=== PATIENT | female | born 1945 | race Caucasian/White ===

== ENCOUNTER 2024-10-12 10:43 | Inpatient (IN) ==
--- NOTE | 2024-10-12 11:14 | Emergency Department Note ---
Impression & Plan Chest pain ED Provider Note HISTORY OF PRESENT ILLNESS: Patient is a 79-year-old female presenting with left arm pain and chest heaviness. Patient reports that she had been having some shortness of breath now for a very long time. She is being worked up by her outpatient provider and had an EKG recently that was read as "abnormal." She is scheduled to have an outpatient stress test and further testing done later in the month. However, she woke up today and was watching TV when she started to have pain in her left upper arm. Describes it as a burning sensation that has not gone away. She also reports that she is having substernal chest pressure. She reports feeling short of breath with exertion. She is normally very physically active and has been having to take breaks after short walks and having to break multiple times during her [employer] class secondary to shortness of breath. She denies any cough or fevers. Denies any history of cardiac stents. Denies any DVT or PE history. She is not on any anticoagulation or antiplatelet therapy. Of note, patient reports that she lost her a year ago and really has been having progressively worsening shortness of breath since then. ROS: as above PHYSICAL EXAM: Constitutional: Patient appears in no acute distress. HENT: Head: Normocephalic and atraumatic. Eyes: EOMI, PERRL Mouth/Throat: Mucous membranes moist. Neck: Trachea midline. Neck supple. Cardiovascular: RRR, No murmurs, rubs or gallops. Intact distal pulses. Pulmonary/Chest: No respiratory distress. Breath sounds clear and equal bilaterally. No wheezes or rales. Abdominal: Abdomen soft, no tenderness, rebound or guarding. Musculoskeletal: No edema, tenderness or deformity noted. Skin: Warm and dry. No rash, erythema, pallor or cyanosis Psychiatric: Appropriate mood and affect for situation. Neurological: Alert and keenly responsive. CN II-XII grossly intact, moving all extremities equally and fully. MDM: - Vitals signs showed hypertension. - History obtained via patient. History as above. - Chronic conditions affecting care: HTN - Differential diagnoses include, but are not limited to: Acute coronary syndrome; pulmonary embolism; dissection; tension pneumothorax; esophageal rupture; pneumonia - Order placed for continuous cardiac monitoring. At this time, monitor showed rate of 70 bpm with normal sinus rhythm, per my interpretation. - External medical records reviewed. - EKG interpreted by myself showed normal sinus rhythm. Rate 67 bpm. QT 408. No acute ischemic changes. However, noted to have some T wave inversions in leads II, III and aVF. No previous EKG to compare to. - Laboratory workup interpreted by myself showed normal WBC; normal PT/INR; stable electyrolytes; normal troponin; normal lipase - CXR negative for pneumonia, per my interpretation - Viral respiratory panel negative - Patient offered pain meds for her symptoms in the ER, but she declined - Repeat troponin within normal limits - HEART score 4 (History +0; EKG +1; Age +2; Risk factors +1; Initial troponin +0), amounting to a moderate score. - Discussed results with patient and her family member at bedside. Patient is very anxious appearing and states she does not feel comfortable going home and waiting for her stress test later this month. Will discuss case with hospitalist service. - Discussion was had with case preparer and liner about patient's case and need for admission - Hospitalist consulted for admission - Patient admitted to [facility] hospitalist service for further evaluation and management. ASSESSMENT AND PLAN: Diagnosis: Chest pain Plan: Admit Past Med/Surg History Problem List (Updated 10/12/24 @ 13:51 by Roya Tyler MD) Chest pain (Acute) Social History Smoking Status: Never smoker Feels Safe at Home: Yes Results & Data (ED) Vital Signs Vital Signs - 24 hr 10/12/24 10:51 10/12/24 11:17 10/12/24 11:33 Temperature 36.4 C L Temperature Source Oral Pulse Rate 68 74 80 Pulse Rate from SpO2 Sensor 81 Respiratory Rate 20 23 Respiratory Effort / Characteristics Non-Labored Spontaneous Respiratory Depth Normal Respiratory Pattern Regular Blood Pressure 163/86 H Blood Pressure Mean 111 Pulse Oximetry 97 95 98 Oxygen Delivery Method Room Air Sepsis Recent Fever Within 48 Hours No Sepsis New/Unexplained Change in Mental Status N/A Sepsis Action Taken by Nursing No Action Required 10/12/24 11:46 10/12/24 12:15 10/12/24 12:30 Temperature Temperature Source Pulse Rate 72 65 66 Pulse Rate from SpO2 Sensor 64 67 Respiratory Rate 23 15 Respiratory Effort / Characteristics Respiratory Depth Respiratory Pattern Blood Pressure Blood Pressure Mean Pulse Oximetry 97 97 Oxygen Delivery Method Sepsis Recent Fever Within 48 Hours Sepsis New/Unexplained Change in Mental Status Sepsis Action Taken by Nursing 10/12/24 13:00 Temperature Temperature Source Pulse Rate 70 Pulse Rate from SpO2 Sensor 72 Respiratory Rate 13 Respiratory Effort / Characteristics Respiratory Depth Respiratory Pattern Blood Pressure 164/85 H Blood Pressure Mean 111 Pulse Oximetry 96 Oxygen Delivery Method Sepsis Recent Fever Within 48 Hours Sepsis New/Unexplained Change in Mental Status Sepsis Action Taken by Nursing Laboratory Data 10/12/24 11:11 10/12/24 11:11 Lab Results 10/12/24 10/12/24 10/12/24 Range/Units 11:11 11:15 12:59 WBC 10.51 (4.8-10.8) K/ul RBC 4.35 (4.20-5.40) M/uL Hgb 14.3 (12.0-16.0) g/dl Hct 41.9 (37.0-47.0) % MCV 96.3 (80.0-100.0) fL MCH 32.9 (25.0-34.0) pg MCHC 34.1 (32.0-36.0) g/dL RDW Std Deviation 43.1 (36.4-46.3) fL RDW Coeff of Tino 12.1 (11.5-14.5) % Plt Count 267 (130-400) K/uL MPV 11.1 (9.4-12.4) fL Immature Gran % (Auto) 0.3 % Neut % (Auto) 64.9 % Lymph % (Auto) 25.0 % [place] % (Auto) 8.4 % Eos % (Auto) 0.8 % Baso % (Auto) 0.6 % Neut # (Auto) 6.83 H (1.40-6.50) K/uL Lymph # (Auto) 2.63 (1.20-3.40) K/uL [place] # (Auto) 0.88 H (0.11-0.59) K/uL Eos # (Auto) 0.08 (0.00-0.50) K/uL Baso # (Auto) 0.06 (0.00-0.20) K/uL Immature Gran # (Auto) 0.03 (0.01-0.20) K/uL PT 10.4 (9.0-12.0) Seconds INR 1.0 (0.9-1.1) Sodium 140 (136-145) mmol/L Potassium 4.0 (3.5-5.1) mmol/L Chloride 107 (98-107) mmol/L Carbon Dioxide 27 (21-32) mmol/L Anion Gap 6 (3-11) BUN 20 (6-23) mg/dl Creatinine 0.67 (0.6-1.2) mg/dl Est Cr Clr Drug Dosing 64.2 ml/min eGFR 89.41 BUN/Creatinine Ratio 29.9 H (10-20) Glucose 96 (70-99(Fasting)) mg/dl Calcium 9.2 (8.6-10.3) mg/dl Magnesium 2.0 (1.7-2.4) mg/dl Total Bilirubin 0.4 (0.2-1.0) mg/dl AST 27 (13-39) U/L ALT 23 (7-52) U/L Alkaline Phosphatase 98 (34-104) U/L Troponin I High Sens 5.9 6.7 (0-14) pg/ml Total Protein 7.0 (6.0-8.3) gm/dl Albumin 4.3 (3.4-5.0) gm/dl Globulin 2.7 (2.5-4.0) gm/dl Albumin/Globulin Ratio 1.6 (0.9-2) Lipase 15 (11-82) U/L Adenovirus (PCR) Not Detected (NotDetected) B. pertussis DNA (PCR) Not Detected (NotDetected) B.parapertussis DNA PCR Not Detected (NotDetected) C. pneumoniae DNA (PCR) Not Detected (NotDetected) Coronavirus OC43 (PCR) Not Detected (NotDetected) Coronavirus HKU1 (PCR) Not Detected (NotDetected) Coronavirus 229E (PCR) Not Detected (NotDetected) SARS-CoV-2 (PCR) Not Detected (NotDetected) Coronavirus NL63 (PCR) Not Detected (NotDetected) Human Metapneumovir PCR Not Detected (NotDetected) Influenza Type A (PCR) Not Detected (NotDetected) Influenza Type B (PCR) Not Detected (NotDetected) M. pneumoniae (PCR) Not Detected (NotDetected) Parainfluenza 1 (PCR) Not Detected (NotDetected) Parainfluenza 2 (PCR) Not Detected (NotDetected) Parainfluenza 3 (PCR) Not Detected (NotDetected) Parainfluenza 4 (PCR) Not Detected (NotDetected) RSV (PCR) Not Detected (NotDetected) Entero/Rhino (PCR) Not Detected (NotDetected) Imaging Data Radiologist's Impression: Chest X-Ray 10/12/24 11:00 XR chest 1V portable CLINICAL HISTORY: Chest pain, nonspecific TECHNIQUE: Single frontal radiograph of the chest was obtained. Comparison: None available at the time of this dictation. FINDINGS: No lines and tubes are seen. Calcified aortic knob is seen. The lungs are clear. No evidence of pleural effusion or pneumothorax. IMPRESSION: No acute chest disease. ACT 112: Negative or not required by law. Electronically signed by: Kevin Pineda M.D. 10/12/2024 11:40 AM Discharge Plan Visit Data Chief Complaint: Cardiac Assessment Stated Complaint: IRREGULAR CARDIOGRAM, L ARM PAIN, SOB ED Provider: Roya Tyler Discharge Problem: Chest pain Forms Stand Alone Forms: [facility] Referrals Referrals: PCP,NO [Physician] -
[2024-10-12 11:36] LABS: Basophils # (auto) 0.06 K/uL (0.00-0.20); Basophils % (auto) 0.6 %; Eosinophils # (auto) 0.08 K/uL (0.00-0.50); Eosinophils % (auto) 0.8 %; Hematocrit (blood only) 41.9 % (37.0-47.0); Hemoglobin 14.3 g/dl (12.0-16.0); Immature Granulocytes # (auto) 0.03 K/uL (0.01-0.20); Immature Granulocytes % (auto) 0.3 %; Lymphocytes # (auto) 2.63 K/uL (1.20-3.40); Mean Corpuscular Hemoglobin 32.9 pg (25.0-34.0); Mean Corpuscular Hgb Conc 34.1 g/dL (32.0-36.0); Mean Corpuscular Volume 96.3 fL (80.0-100.0); Mean Platelet Volume 11.1 fL (9.4-12.4); Monocytes # (auto) 0.88 K/uL (0.11-0.59); Monocytes % (auto) 8.4 %; Neutrophils # (auto) 6.83 K/uL (1.40-6.50); Neutrophils % (auto) 64.9 %; Platelet Count 267 K/uL (130-400); RDW Coefficient of Variation 12.1 % (11.5-14.5); RDW Standard Deviation 43.1 fL (36.4-46.3); Red Blood Count 4.35 M/uL (4.20-5.40); White Blood Count 10.51 K/ul (4.8-10.8)
--- NOTE | 2024-10-12 11:41 | XRay Report ---
XR chest 1V portable CLINICAL HISTORY: Chest pain, nonspecific TECHNIQUE: Single frontal radiograph of the chest was obtained. Comparison: None available at the time of this dictation. FINDINGS: No lines and tubes are seen. Calcified aortic knob is seen. The lungs are clear. No evidence of pleur al effusion or pneumothorax. IMPRESSION: No acute chest disease. ACT 112: Negative or not required by law. Electronically signed by: Kevin Pineda M.D. 10/12/2024 11:40 AM
[2024-10-12 11:54] LABS: Prothrombin Time 10.4 Seconds (9.0-12.0)
[2024-10-12 11:58] LABS: Albumin Level 4.3 gm/dl (3.4-5.0); Bilirubin,Total 0.4 mg/dl (0.2-1.0); Calcium 9.2 mg/dl (8.6-10.3)
[2024-10-12 12:02] LABS: Troponin I High Sensitivity 5.9 pg/ml (0-14)
[2024-10-12 12:04] LABS: Albumin Globulin Ratio 1.6 (0.9-2); BUN Creatinine Ratio 29.9 (10-20); Creatinine Clr Calc Pharmacy 64.2 ml/min; Globulin 2.7 gm/dl (2.5-4.0)
[2024-10-12 12:45] LABS: Adenovirus PCR Not Detected (NotDetected); Bordetella parapertussis PCR Not Detected (NotDetected); Bordetella pertussis PCR Not Detected (NotDetected); Chlamydia pneumoniae PCR Not Detected (NotDetected); Coronavirus 229E PCR Not Detected (NotDetected); Coronavirus CoV-2 (COVID19)PCR Not Detected (NotDetected); Coronavirus HKU1 PCR Not Detected (NotDetected); Coronavirus NL63 PCR Not Detected (NotDetected); Coronavirus OC43PCR Not Detected (NotDetected); Human Metapneumovirus PCR Not Detected (NotDetected); Influenza A PCR Not Detected (NotDetected); Influenza B PCR Not Detected (NotDetected); Mycoplasma pneumoniae PCR Not Detected (NotDetected); Parainfluenza Virus 1 PCR Not Detected (NotDetected); Parainfluenza Virus 2 PCR Not Detected (NotDetected); Parainfluenza Virus 3 PCR Not Detected (NotDetected); Parainfluenza Virus 4 PCR Not Detected (NotDetected); Respiratory Syncytial VirusPCR Not Detected (NotDetected); Rhinovirus/Enterovirus PCR Not Detected (NotDetected)
--- NOTE | 2024-10-12 16:26 | History & Physical Report ---
Date of Service October 12, 2024 Assessment & Plan (1) Dyspnea on minimal exertion: (2) Chest pain: Plan: 79-year-old female with no significant past medical history presenting with episodes of chest pressure, shortness of breath, left upper arm pain times few days. Chest pain, dyspnea on exertion, left upper arm pain ACS ruled out Rule out unstable angina Troponins x 2 negative, third troponin pending EKG: Nonspecific T wave inversions in the inferior and anterolateral leads Chest x-ray: Calcified aortic knob Start aspirin 81 mg p.o. daily If blood pressure remains elevated, will start carvedilol 12.5 mg p.o. twice daily Lipitor 10 mg daily Echocardiogram ordered Cardiology service consult Acute bronchitis Diagnosed at the PCP office a week ago Cough improving, still having some shortness of breath Chest x-ray today: No pneumonia BioFire: Negative Continue previously prescribed amoxicillin, Last day tomorrow Hold prednisone taper, No wheezing, currently having cardiac symptoms GERD Continue PPI DVT prophylaxis SCDs for now Full code as per patient Disposition Lives at home History of Present Illness Chief Complaint: Episodes of chest pressure, shortness of breath, left upper arm pain times few days Primary Care Provider: Abraham Todd PA-C 79-year-old female with no significant past medical history presenting with episodes of chest pressure, shortness of breath, left upper arm pain times few days. As a background, patient is an active 79-year-old lady who exercises at the [facility] at least 5 times a week. Last October 03, 2024, patient presented to her PCP for cough, shortness of breath symptoms. She was given a course of amoxicillin, and azithromycin. As per patient she did not take azithromycin because of possible GI side effect. Patient's cough is improving but still is reporting shortness of breath with exertion. Last , she had a follow-up visit with her PCP. An EKG was performed which showed some abnormalities. She was given a course of prednisone. Since that time, the patient is still experiencing some shortness of breath with exertion, associated with chest pressure and intermittent left upper arm pain. Due to the symptoms, patient presented to the ER today. At the ER, blood pressure 163/86, heart rate 68, O2 sat 96% on room air. EKG: Nonspecific T wave depressions inferior and anterolateral leads Troponins x 2: Negative On exam, patient seen resting in bed, sitting up, not in distress No active shortness of breath or chest pain but does have left upper arm discomfort-burning/sharp. No headache, dizziness, abdominal pain, nausea or vomiting, lower extremity pain, etc. Allergies Allergy/AdvReac Type Severity Reaction Status Date / Time No Known Allergies Allergy Unverified 10/12/24 13:50 Home Medications Medication Instructions Recorded Confirmed Type amoxicillin 500 mg capsule 500 mg PO TID 10/12/24 10/12/24 History esomeprazole magnesium 40 mg 40 mg PO QAM 10/12/24 10/12/24 History capsule,delayed release famotidine-Ca carb-mag hydrox 10 1 tab PO HS 10/12/24 10/12/24 History mg-800 mg-165 mg chewable tablet (Pepcid Complete) prednisone 10 mg tablet See Rx Instructions .Route .COMPLEX 10/12/24 10/12/24 History promethazine-DM 6.25 mg-15 mg/5 mL 5 ml PO QID PRN Cough 10/12/24 10/12/24 History oral syrup Past Med/Surg History Problem List (Updated 10/12/24 @ 16:29 by Bakari Grimes MD) Dyspnea on minimal exertion Chest pain (Acute) Social History Smoking Status: Never smoker Feels Safe at Home: Yes Review of Systems Review of Systems: all noted and negative except for above Physical Exam Physical Exam: General- oriented x 3, not in distress, speaks in sentences with no effort or accessory muscle use Head- atraumatic Eyes- PERRL, EOMI, anicteric ENT- oropharynx clear Neck- supple, no JVD, no adenopathy, no thyromegaly; carotids +2/2, no bruits appreciated Lungs- clear to auscultation bilaterally, no rales/wheezes Heart- normal rate, regular rhythm; no murmur, no gallop, no rub appreciated Abdomen- normal bowel sounds, nondistended, soft, nontender, no masses or hepatosplenomegaly Extremities- no pretibial edema, no calf tenderness; peripheral pulses intact Neuro- alert, oriented x 3; CN 2-12 grossly intact; motor 5/5 bilaterally;s ensation 100% on all extremities; no other gross focal neurologic deficits Skin- warm & dry Results & Data Results & Data Vital Signs (Past 12 Hours) Vital Signs Temp Pulse Resp BP Pulse Ox O2 Del Method 10/12/24 15:03 73 16 96 10/12/24 15:00 149/82 H 10/12/24 15:00 149/82 H 10/12/24 15:00 149/82 H 10/12/24 15:00 149/82 H 10/12/24 14:57 75 17 95 10/12/24 14:42 71 15 95 10/12/24 14:15 86 20 96 10/12/24 14:00 149/90 H 10/12/24 14:00 149/90 H 10/12/24 13:54 73 19 96 10/12/24 13:39 69 21 96 10/12/24 13:00 70 13 164/85 H 96 10/12/24 12:30 66 15 97 10/12/24 12:15 65 23 97 10/12/24 11:46 72 10/12/24 11:33 80 23 98 10/12/24 11:17 74 95 10/12/24 10:51 36.4 C L 68 20 163/86 H 97 Room Air all noted and reviewed including below Code Status & VTE Plan VTE Prophylaxis Plan VTE Prophylaxis will be ordered: Yes
[2024-10-12 16:58] LABS: Appearance Urine Clear (Clear); Bilirubin Urine Negative (Negative); Blood Urine Negative (Negative); Color Urine Yellow; Glucose Urine UA Negative (Negative); Ketones Urine Negative (Negative); Leukocyte Esterase Urine Negative (Negative); Nitrite Urine Negative (Negative); Protein Urine Negative (Negative); Urobilinogen Urine Negative (Negative); pH Urine 6.5 (4.5-7.5)
[2024-10-12] MEDS: ASPIRIN 81 MG ECTAB PO STA (17:01)
[2024-10-12] MEDS: ADVANCED PROBIOTIC 625 MG CAPSULE PO SCH (17:58)
[2024-10-12] MEDS: ACETAMINOPHEN 325 MG TAB PO PRN (18:22)
[2024-10-12] MEDS: AMOXICILLIN 500 MG CAP PO SCH (20:18)
[2024-10-12] MEDS: FAMOTIDINE 40 MG TABLET PO SCH (20:18)
[2024-10-12] MEDS: LORazepam 0.5 MG TAB PO PRN (21:51)
[2024-10-13 06:45] LABS: Hematocrit (blood only) 39.7 % (37.0-47.0); Hemoglobin 13.6 g/dl (12.0-16.0); Mean Corpuscular Hemoglobin 32.9 pg (25.0-34.0); Mean Corpuscular Hgb Conc 34.3 g/dL (32.0-36.0); Mean Corpuscular Volume 95.9 fL (80.0-100.0); Mean Platelet Volume 10.9 fL (9.4-12.4); Platelet Count 249 K/uL (130-400); RDW Coefficient of Variation 12.1 % (11.5-14.5); RDW Standard Deviation 42.5 fL (36.4-46.3); Red Blood Count 4.14 M/uL (4.20-5.40); White Blood Count 8.75 K/ul (4.8-10.8)
[2024-10-13 07:13] LABS: Basophils # (auto) 0.09 K/uL (0.00-0.20); Eosinophils # (auto) 0.15 K/uL (0.00-0.50); Eosinophils % (auto) 1.7 %; Immature Granulocytes # (auto) 0.03 K/uL (0.01-0.20); Immature Granulocytes % (auto) 0.3 %; Lymphocytes # (auto) 4.41 K/uL (1.20-3.40); Lymphocytes % (auto) 50.4 %; Monocytes # (auto) 0.71 K/uL (0.11-0.59); Monocytes % (auto) 8.1 %; Neutrophils # (auto) 3.36 K/uL (1.40-6.50); Neutrophils % (auto) 38.5 %
[2024-10-13 07:14] LABS: BUN Creatinine Ratio 32.8 (10-20); Calcium 8.7 mg/dl (8.6-10.3); Creatinine Clr Calc Pharmacy 74.1 ml/min; Potassium 3.7 mmol/L (3.5-5.1)
[2024-10-13] MEDS: ASPIRIN 81 MG ECTAB PO SCH (07:33)
[2024-10-13] MEDS: ATORVASTATIN 10 MG TAB PO SCH (07:33)
[2024-10-13] MEDS: PANTOprazole 40 MG TAB PO SCH (07:33)
--- NOTE | 2024-10-13 11:38 | Cardiology Consultation ---
<Statement entered by Mariaa Smith, DO - 10/13/24 20:59> I have reviewed the advanced practitioner's documentation and agree with the plan of care. I accept the responsibility for the associated risk. pt seen in cardiology consultation due to persistent worsening SOB and some chest discomfort pt seen earlier today with daughter at the bedside pt is very active and has been having CHAMPION preventing her from finishing her work out recommend nuclear stress test as an in pt the pt's daughter also was asking about CT PE protocol for they are concerned about PE; we will order this although my suspicion is low continue ASA and lipitor BP is good monitor on telemetry I discussed the case and my recommendations with the hospitalist over the phone and he agreed with my plan I spent a total of [45] minutes coordinating, documenting, and providing care for this patient excluding time spent in the performance of separately billed services or time spent by another provider/QHP. Date of Consultation October 13, 2024 Assessment & Plan (1) Chest pain: (2) Abnormal EKG: (3) Dyspnea on minimal exertion: Plan Patient reporting reduced exercise capacity, increased SOB, intermittent chest heaviness and Left arm pain over jose guadalupe last few weeks. Was treated as outpatient for possible bronchitis but no improvement with antibiotics and steroids. Had f/u with PCP ([facility]) and found to have abnormal EKG with T wave inversions. She was scheduled for outpatient stress test. Symptoms of chest heaviness and left arm burning occurred last night that was concerning. Came to ER for evaluation EKG demonstrating NSR with T wave inversions in anterolateral leads, concerning for ischemia. HS troponin negative x3 since admission. No recurrent symptoms. Given SOB recommend chest CTA to r/o pulm process contributing to her symptoms. Echo with normal LVEF, no wall motion abnormalities. Given concerns for ischemic heart disease based on EKG abnormalities and her symptoms, recommend further evaluation/work up wiht nuclear lexiscan stress test on 10/14/24. NPO after midnight. No caffeine. ASA 81 mg daily and atorvastatin 10 mg daily initiated. BP currently controlled. Given intermittent palpitations, consider outpatient ZIO. No arrhythmias on telemetry currently. Further recommendations pending above test results. Case discussed with Dr. Smith I spent a total of 60 minutes on the date of service in preparation, delivery, and documentation of the care provided to this patient, excluding any time spent in the performance of separately billed services. Shi Call PA-C Department of Cardiology, [facility] This chart was completed in part utilizing Speech Voice Recognition Software. Grammatical errors, random word insertions, pronoun errors, and incomplete sentences are an occasional consequence of this system due to software limitations, ambient noise, and hardware issues. Any formal questions or concerns about the content, text, or information contained within the body of this dictation should be directly addressed to the provider for clarification. History of Present Illness Reason for Consultation: Chest pain Requesting Physician: Derek Hospitalist Attending Physician: Dr. Smith History of Present Illness Patient is a 79 year old female who presented to [facility] yesterday with complaints of worsening CP and SOB. Recently treated for bronchitis as an outpatient. Started on antibiotics and steroids. Despite treatment, patient reported worsening shortness of breath over the last few days, associated with exertional chest pain radiating to her left arm. No prior cardiac history. No prior cardiac work up. Apparently she had an EKG done as outpatient (records not available) but this was 'abnormal' and she is scheduled for an outpatient stress through [facility] BP was elevated on arrival to ER. HS troponin negative x3. EKG on arrival demonstrated NSR with T wave inversions in inferior and anterolateral leads. No prior EKG's for comparison. Repeat EKG this morning demonstrated once again NSR, with T wave inversions in anterolateral leads Patient is typically very active exercising 5 days per week. Apparently she has felt increasingly short of breath over the last few weeks, having to stop her exercise class. Last night she developed left arm "burning" sensation and she became concerned and came to the ER. Currently patient feeling well. Daughter at bedside. She felt the prednisone and antibiotic never fully improved her symptoms. She reports wide fluctuations of HR at home on home watch. Sometimes in the 120's with intermittent palpitations Allergies Allergy/AdvReac Type Severity Reaction Status Date / Time No Known Allergies Allergy Unverified 10/12/24 13:50 Home Medications Medication Instructions Recorded Confirmed Type amoxicillin 500 mg capsule 500 mg PO TID 10/12/24 10/12/24 History esomeprazole magnesium 40 mg 40 mg PO QAM 10/12/24 10/12/24 History capsule,delayed release famotidine-Ca carb-mag hydrox 10 1 tab PO HS 10/12/24 10/12/24 History mg-800 mg-165 mg chewable tablet (Pepcid Complete) prednisone 10 mg tablet See Rx Instructions .Route .COMPLEX 10/12/24 10/12/24 History promethazine-DM 6.25 mg-15 mg/5 mL 5 ml PO QID PRN Cough 10/12/24 10/12/24 His tory oral syrup Patient History Social History Smoking Status: Never smoker Second Hand Exposure: No; Do You Dip or Chew Tobacco: No; Hx Alcohol Use: No Hx Substance Use: No Preferred Language: [place] Supervisor Advice Required: No Beliefs That Will Affect Care: None Current Living Situation: Alone Feels Safe at Home: Yes Safety Concerns: Feels Safe At This Time Assistive Devices: Contacts and Glasses Review of Systems Review of Systems: All systems reviewed & are unremarkable except as noted in HPI & below Physical Exam Constitutional: WD/WN, vitals as above Neck: trachea midline, no thyromegaly normal visual inspection Respiratory: normal respiratory effort Auscultation: lungs clear to auscultation bilaterally Cardiovascular: RRR, no murmur, no edema Gastrointestinal (Abdomen): normal bowel sounds, soft, nontender, no hepatosplenomegaly Neurologic: PERRL, EOMI, accommodation nl, no face palsy, no dysarthria Results & Data Vital Signs (Past 12 Hours) Vital Signs Temp Pulse Pulse Resp BP BP Pulse Ox 10/13/24 11:22 36.6 C 73 18 128/83 94 10/13/24 07:19 36.4 C L 62 16 144/80 H 95 10/13/24 06:50 52 L 10/13/24 03:40 36.7 C 60 18 114/67 95 O2 Del Method 10/13/24 11:22 Room Air 10/13/24 07:19 Room Air 10/13/24 06:50 10/13/24 03:40 Room Air Laboratory Results Cardiac Enzymes 10/12/24 10/12/24 10/12/24 Range/Units 11:11 12:59 18:02 AST 27 (13-39) U/L Troponin I High Sens 5.9 6.7 6.1 (0-14) pg/ml Coagulation 10/12/24 Range/Units 11:11 PT 10.4 (9.0-12.0) Seconds CBC 10/12/24 10/13/24 Range/Units 11: 06:18 WBC 10.51 8.75 (4.8-10.8) K/ul RBC 4.35 4.14 L (4.20-5.40) M/uL Hgb 14.3 13.6 (12.0-16.0) g/dl Hct 41.9 39.7 (37.0-47.0) % Plt Count 267 249 (130-400) K/uL Neut # (Auto) 6.83 H 3.36 (1.40-6.50) K/uL Lymph # (Auto) 2.63 4.41 H (1.20-3.40) K/uL [place] # (Auto) 0.88 H 0.71 H (0.11-0.59) K/uL Eos # (Auto) 0.08 0.15 (0.00-0.50) K/uL Baso # (Auto) 0.06 0.09 (0.00-0.20) K/uL Comprehensive Metabolic Panel 10/12/24 10/13/24 Range/Units 11: 06:18 Sodium 140 142 (136-145) mmol/L Potassium 4.0 3.7 (3.5-5.1) mmol/L Chloride 107 108 H (98-107) mmol/L Carbon Dioxide 27 28 (21-32) mmol/L BUN 20 19 (6-23) mg/dl Creatinine 0.67 0.58 L (0.6-1.2) mg/dl Glucose 96 92 (70-99(Fasting)) mg/dl Calcium 9.2 8.7 (8.6-10.3) mg/dl AST 27 (13-39) U/L ALT 23 (7-52) U/L Alkaline Phosphatase 98 (34-104) U/L Total Protein 7.0 (6.0-8.3) gm/dl Albumin 4.3 (3.4-5.0) gm/dl Intake and Output 10/12/24 10/13/24 10/13/24 22:59 06:59 14:59 Intake Total 240 / 560 320 / 560 120 / 120 Output Total 0 / 0 0 / 0 Balance 240 / 560 320 / 560 120 / 120 Intake: Oral 240 / 560 320 / 560 120 / 120 Output: # Bowel Movements 0 / 0 0 / 0 Other: Other Intake Source NPO # Unmeasured Voids 0 0 Weight 68.3 kg 68.2 kg Weight Measurement Method Built in Bedscale Built in [facility] Diagnostic Findings Telemetry reviewed: NSR ranging 50-90 bmp EKG reviewed from admission 10/12/24: NSR with diffuse T wave abnormality concerning for ischemia in inferior and anterolateral leads Repeat EKG from 10/13/24: NSR with T wave abnormality - similar to admission EKG echo report reviewed dated 10/13/24: Normal LVEF at 55-60% Mild concentric LVH Grade I diastolic dysfunction Mild MR Chest X-Ray 10/12/24 11:00 XR chest 1V portable CLINICAL HISTORY: Chest pain, nonspecific TECHNIQUE: Single frontal radiograph of the chest was obtained. Comparison: None available at the time of this dictation. FINDINGS: No lines and tubes are seen. Calcified aortic knob is seen. The lungs are clear. No evidence of pleural effusion or pneumothorax. IMPRESSION: No acute chest disease. Medications Administered Current Inpatient Medications Acetaminophen (Acetaminophen 325 Mg Tab) 650 mg PO Q4H PRN PRN Reason: Pain or Fever Stop: 11/11/24 17:51 Last Admin: 10/12/24 18:22 Dose: 650 mg Amoxicillin (Amoxicillin 500 Mg Cap) 500 mg PO TID [facility]; Protocol Stop: 10/22/24 20:59 Last Admin: 10/13/24 07:32 Dose: 500 mg Aspirin (Aspirin 81 Mg Ectab) 81 mg PO QAM [facility] Stop: 11/12/24 08:59 Last Admin: 10/13/24 07:33 Dose: 81 mg Atorvastatin Calcium (Atorvastatin 10 Mg Tab) 10 mg PO QAM [facility] Stop: 11/12/24 08:59 Last Admin: 10/13/24 07:33 Dose: Not Given Famotidine (Famotidine 40 Mg Tablet) 40 mg PO HS DINA Stop: 11/11/24 20:59 Last Admin: 10/12/24 20:18 Dose: 40 mg Lactobacillus Acidophilus (Advanced Probiotic 625 Mg Capsule) 1,250 mg PO DAILY [facility] Stop: 11/11/24 08:59 Last Admin: 10/13/24 07:33 Dose: 1,250 mg Lorazepam (Lorazepam 0.5 Mg Tab) 0.25 mg PO HS PRN PRN Reason: insomnia Stop: 11/11/24 20:31 Last Admin: 10/12/24 21:51 Dose: 0.25 mg Pantoprazole Sodium (Pantoprazole 40 Mg Tab) 40 mg PO [facility] Stop: 11/12/24 08:59 Last Admin: 10/13/24 07:33 Dose: 40 mg (1) Chest pain Chest pain type: unspecified Qualified Code(s): R07.9 - Chest pain, unspecified
[2024-10-13] MEDS: OPTIRAY 320 125ml IV ONE (14:05)
--- NOTE | 2024-10-13 14:17 | CT Scan Report ---
EXAM:CT Angiography Chest With Intravenous Contrast INDICATION: Shortness of breath. Recent bronchitis. TECHNIQUE: Axial computed tomographic angiography images of the chest with intravenous contrast. Sagittal and coronal reformatted images were created and reviewed. This CT exam was performed using one or more of the following dose reduction techniques: automated exposure control, adjustment of the mA and/or kV according to patient size, and/or use of iterative reconstruction technique. MIP reconstructed images were created and reviewed. CONTRAST: 119ml of Optiray 320 was administered intravenously. COMPARISON: No relevant prior studies available. FINDINGS: Pulmonary arteries: No abnormality noted. No pulmonary embolism. Aorta: Ectatic aorta with mild scattered atherosclerosis. No aneurysm or dissection. Lungs and pleural spaces: 2 mm nodule right upper lobe series 4 image 164. Mild scattered atelectasis present. No infiltrate. No pleural effusion or pneumothorax. Heart: Cardiomegaly. No evidence of right heart strain or pericardial effusion. Bones/joints: Mild degenerative changes of the spine and shoulders. There is a small sclerotic nodule in the right lateral sixth rib presumably a bone island. No acute osseous abnormality identified. Soft tissues: No abnormality noted. Lymph nodes: No abnormality noted. No enlarged lymph nodes. IMPRESSION: 1. No pulmonary embolus or pneumonia. 2. 2 mm low suspicion right upper lobe pulmonary nodule. Fleischner Society Guidelines for low-risk or high-risk patients recommend that one should consider chest CT at 12 months due to the morphology and/or location of this nodule. ACT 112: Negative or not required by law. Electronically signed by Mi Villafana 10-13-2024 2:16 PM
--- NOTE | 2024-10-13 16:22 | Hospitalist Progress Note ---
Date of Service October 13, 2024 Assessment & Plan (1) Dyspnea on minimal exertion: (2) Chest pain: Plan: 79-year-old female with no significant past medical history presenting w/ CHAMPION, exertional CP w/ LUE radiation. She is being managed for the following: Chest pain, dyspnea on exertion, left upper arm pain ACS ruled out Rule out unstable angina Troponins x 3 negative, admitting EKG w/ TWI in antlat leads. ECHO w/ EF of 55-60%, Gr I diastolic dysfunction. CXR w/ no acute finding. CTA chest w/ no PE or pna. 2mm RUL nodule noted ----> f/u [address] chest recommended. Get lipid profile in AM c/w aspirin and statin. BP has been better. Cardio on board, appreciate recs. OP zio. stress test juan. NPO midnight until cards eval in AM. Acute bronchitis Diagnosed at the PCP office a week ago [employer] Cough improving, still having some shortness of breath Chest x-ray today: No pneumonia BioFire: Negative Continue previously prescribed amoxicillin, will complete after today's doses. Held prednisone taper, No wheezing, currently having cardiac symptoms GERD: Continue PPI DVT prophylaxis: SCDs for now Full code Disposition: Lives at home Admission and Anticipated Discharge Date Admission Date: October 12, 2024 Subjective Patient was seen and examined at bedside. Patient was sitting up in bed, on room air, NAD, resting comfortably. Patient reports no further chest pain after coming to the hospital. Patient is eating okay and moving bowels okay, denies pain and burning while passing urine. Physical Exam Physical Exam: General- oriented x 3, not in distress, speaks in sentences with no effort or accessory muscle use Head- atraumatic Eyes- PERRL, EOMI, anicteric ENT- oropharynx clear Neck- supple, no JVD, no adenopathy, no thyromegaly; carotids +2/2, no bruits appreciated Lungs- clear to auscultation bilaterally, no rales/wheezes Heart- normal rate, regular rhythm; no murmur, no gallop, no rub appreciated Abdomen- normal bowel sounds, nondistended, soft, nontender, no masses or hepatosplenomegaly Extremities- no pretibial edema, no calf tenderness; peripheral pulses intact Neuro- alert, oriented x 3; CN 2-12 grossly intact; motor 5/5 bilaterally;sensation 100% on all extremities; no other gross focal neurologic deficits Skin- warm & dry Results & Data Results & Data Vital Signs (Past 12 Hours) Vital Signs Temp Pulse Pulse Resp BP Pulse Ox O2 Del Method 10/13/24 14:00 87 10/13/24 11:22 36.6 C 73 18 128/83 94 Room Air 10/13/24 07:19 36.4 C L 62 16 144/80 H 95 Room Air 10/13/24 06:50 52 L (2) Chest pain Chest pain type: unspecified Qualified Code(s): R07.9 - Chest pain, unspecified
--- NOTE | 2024-10-13 21:47 | Electrocardiogram Report ---
Test Reason : Blood Pressure : */* mmHG Vent. Rate : 67 BPM Atrial Rate : 67 BPM P-R Int : 160 ms QRS Dur : 90 ms QT Int : 408 ms P-R-T Axes : 20 -6 -46 degrees QTcB Int : 431 ms Sinus rhythm T wave abnormality, consider anterior ischemia Incomplete right bundle branch block Abnormal ECG No previous ECGs available Confirmed by Camilo Bourne ([id number]) on 10/13/2024 9:47:34 PM Referred By: Confirmed By: Camilo Bourne
--- NOTE | 2024-10-13 21:49 | Electrocardiogram Report ---
Test Reason : Blood Pressure : */* mmHG Vent. Rate : 62 BPM Atrial Rate : 62 BPM P-R Int : 166 ms QRS Dur : 86 ms QT Int : 438 ms P-R-T Axes : 74 5 29 degrees QTcB Int : 444 ms Normal sinus rhythm T wave abnormality, consider anterior ischemia T wave abnormality, consider inferior ischemia Abnormal ECG When compared with ECG of 12-Oct-2024 11:01, Incomplete right bundle branch block is no longer Present Confirmed by Camilo Bourne ([id number]) on 10/13/2024 9:49:31 PM Referred By: Abraham Todd Confirmed By: Camilo Bourne
[2024-10-14 07:05] LABS: Chol HDL Ratio 3.6 (0-5)
[2024-10-14 08:09] LABS: Calcium 8.7 mg/dl (8.6-10.3)
[2024-10-14] MEDS: REGADENOSON 0.4 MG/5 ML SYR IV ONE (11:11)
--- NOTE | 2024-10-14 15:08 | Myocardial Perfusion Study ---
Date of Service October 14, 2024 Myocardial Perfusion Study [facility] Myocardial Perfusion Study Report Procedure: 1. Myocardial perfusion study performed in multiple views/images 2. Lexiscan pharmacologic stress ECG Indications: 1. Chest pain 2. Abnormal EKG Ordering provider: Darion Call PA-C Procedural details: For the stress portion of the study, Lexiscan 0.4 mg was intravenously administered followed by a saline flush. This was followed by 30 mCi of technetium 99m Cardiolite, injected at11:20 am on 10/14/24. 30 minutes following the injection, imaging of the heart was performed in multiple projections. For the rest portion of the study, 10 mCi technetium 99m Cardiolite was injected intravenously at 9:39 am on 10/14/24. 1 hour following the injection, imaging of the heart was performed in the same projections. Lexiscan stress ECG: The resting EKG revealed sinus rhythm at 70 bpm with T wave inversions in the precordial leads V3 to V6 as well as the inferior leads II, III and aVF suggestive of inferolateral ischemia. The stress EKG response was negative for ischemia with baseline repolarization abnormalities that are relatively unchanged with pharmacologic stress. The stress portion study was terminated having reached the end of the predetermined protocol. Patient described transient headache relieved with receiving caffeinated cola in the post-rest recovery interval. The heart rate response to pharmacologic stress was normal. The blood pressure response to pharmacologic stress was normal. Findings: Rotating raw imaging demonstrated no significant lung uptake. There is no significant motion artifact. Heart size appeared Normal. Stress myocardial perfusion images demonstrated a moderate-sized perfusion defect defect of moderate intensity encompassing the apical anterior segment, apex, and apical inferoseptum. Complete reperfusion was noted on the resting images. Ejection fraction: >70% Wall motion: Normal No significant transient ischemic dilation. Impression: 1.The pharmacologic myocardial perfusion imaging study is abnormal with findings of a moderate-sized reversible apical, apical anterior and apical inferoseptal perfusion defect consistent with ischemia in the distal LAD or distal right coronary artery territories. 2.The post-rest gated wall motion was normal, LVEF normal with calculated left ventricular ejection fraction> 70% by the gated SPECT technique.
--- NOTE | 2024-10-14 16:22 | Communication Note ---
Date of Service: October 14, 2024 Spoke to patient and daughter with regards to the results of her nuclear stress test. The nuclear stress test is abnormal. Discussed options such as me dication therapy versus medications plus or proceeding with invasive coronary angiography. Patient elects to proceed with invasive coronary angiography. Patient to be n.p.o. after midnight with procedure tentatively planned for tomorrow 10/15/2024.
--- NOTE | 2024-10-14 16:30 | Hospitalist Progress Note ---
Date of Service October 14, 2024 Assessment & Plan (1) Dyspnea on minimal exertion: (2) Chest pain: Plan: 79-year-old female with no significant past medical history presenting w/ CHAMPION, exertional CP w/ LUE radiation. She is being managed for the following: Chest pain, dyspnea on exertion, left upper arm pain ACS ruled out Rule out unstable angina Troponins x 3 negative, admitting EKG w/ TWI in antlat leads. ECHO w/ EF of 55-60%, Gr I diastolic dysfunction. CXR w/ no acute finding. CTA chest w/ no PE or pna. 2mm RUL nodule noted ----> f/u [address] chest recommended. LDL 106. Status post stress test 10/14: Positive for inducible ischemia in the distal LAD or distal right coronary artery territories. Cardiology on board, plan for heart cath tomorrow, n.p.o. midnight. c/w aspirin and statin. BP has been better. Acute bronchitis Diagnosed at the PCP office a week ago [employer] Cough improving, still having some shortness of breath Chest x-ray today: No pneumonia BioFire: Negative s/p amoxicillin 10/14. Held prednisone taper, No wheezing, currently having cardiac symptoms GERD: Continue PPI DVT prophylaxis: Hep sc Full code Disposition: Lives at home Admission and Anticipated Discharge Date Admission Date: October 12, 2024 Subjective Patient was seen and examined at bedside. Patient was sitting up in Chair, reading book, on room air, NAD, resting comfortably. Patient reports no further chest pain after coming to the hospital. patient denies any shortness of breath. Physical Exam Physical Exam: General- oriented x 3, not in distress, speaks in sentences with no effort or accessory muscle use Head- atraumatic Eyes- PERRL, EOMI, anicteric ENT- oropharynx clear Neck- supple, no JVD, no adenopathy, no thyromegaly; carotids +2/2, no bruits appreciated Lungs- clear to auscultation bilaterally, no rales/wheezes Heart- normal rate, regular rhythm; no murmur, no gallop, no rub appreciated Abdomen- normal bowel sounds, nondistended, soft, nontender, no masses or hepatosplenomegaly Extremities- no pretibial edema, no calf tenderness; peripheral pulses intact Neuro- alert, oriented x 3; CN 2-12 grossly intact; motor 5/5 bilaterally;sensation 100% on all extremities; no other gross focal neurologic deficits Skin- warm & dry Results & Data Results & Data Vital Signs (Past 12 Hours) Vital Signs Temp Pulse Pulse Resp BP BP Pulse Ox 10/14/24 15:30 36.6 C 88 18 131/86 94 10/14/24 13:00 75 10/14/24 08:00 10/14/24 07:10 36.6 C 70 18 115/76 96 10/14/24 07:00 56 L O2 Del Method 10/14/24 15:30 Room Air 10/14/24 13:00 10/14/24 08:00 Room Air 10/14/24 07:10 Room Air 10/14/24 07:00 (2) Chest pain Chest pain type: unspecified Qualified Code(s): R07.9 - Chest pain, unspecified
[2024-10-14] MEDS: HEPARIN SOD 5,000 UNIT/0.5 ML VIAL SQ SCH (20:34)
[2024-10-15 07:12] LABS: Hematocrit (blood only) 40.9 % (37.0-47.0); Hemoglobin 14.1 g/dl (12.0-16.0); Mean Corpuscular Hemoglobin 33.2 pg (25.0-34.0); Mean Corpuscular Hgb Conc 34.5 g/dL (32.0-36.0); Mean Corpuscular Volume 96.2 fL (80.0-100.0); Mean Platelet Volume 11.1 fL (9.4-12.4); Platelet Count 254 K/uL (130-400); RDW Coefficient of Variation 12.1 % (11.5-14.5); RDW Standard Deviation 42.5 fL (36.4-46.3); Red Blood Count 4.25 M/uL (4.20-5.40); White Blood Count 7.23 K/ul (4.8-10.8)
[2024-10-15 07:31] LABS: BUN Creatinine Ratio 33.9 (10-20); Calcium 9.1 mg/dl (8.6-10.3); Creatinine Clr Calc Pharmacy 69.7 ml/min
--- NOTE | 2024-10-15 12:04 | Pre Anesthesia Assessment ---
Date of Service October 15, 2024 Pre Sedation Assessment Vital Signs Temp Pulse Pulse Resp BP BP Pulse Ox 10/15/24 09:45 78 18 96 10/15/24 08:00 10/15/24 07:34 97.7 F 67 18 147/91 H 92 10/15/24 06:58 64 10/15/24 03:30 98.1 F 64 18 95/51 L 95 10/14/24 23:47 98.1 F 72 20 106/67 93 10/14/24 22:20 72 10/14/24 20:16 97.5 F L 69 20 128/80 95 10/14/24 15:30 97.9 F 88 18 131/86 94 10/14/24 13:00 75 O2 Del Method 10/15/24 09:45 Room Air 10/15/24 08:00 Room Air 10/15/24 07:34 Room Air 10/15/24 06:58 10/15/24 03:30 Room Air 10/14/24 23:47 Room Air 10/14/24 22:20 10/14/24 20:16 Room Air 10/14/24 15:30 Room Air 10/14/24 13:00 Cardiovascular + regular rate Respiratory + respiratory effort normal Pre-Sedation Airway Assessment Smoking Status: Never smoker Short, Thick Neck: No Thyromental Distance: > or= 3.5 Finger Breadths Oral Cavity: + WNL Mallampati Class: III ASA: ASA3 NPO Status Date of Last Intake of Solid Food: 10/14/24 Time of Last Intake of Solid Foods: 20:00 Procedure Planning Contraindications for Sedation: none Current Medications Reviewed: Yes Notes The planned sedation has been discussed with the patient. Informed Consent was obtained. I have identified the patient, determined the appropriateness of sedation and have assessed the patient immediately prior to the procedure. All medicine(s) and interventions are by my order.
[2024-10-15] MEDS: NITROGLYCERIN/D5W 100MCG/ML 20ML SYR ONE (12:18)
[2024-10-15] MEDS: niCARdipine 2,000 MCG/20 ML SYR ONE (12:18)
[2024-10-15] MEDS: MIDAZOLAM HCL 1 MG/ML 2ML VIAL ONE (12:38)
[2024-10-15] MEDS: HEPARIN (PORCINE) 1000 UNIT/ML 10 ML (CATH LAB USE ONLY) ONE (12:44)
[2024-10-15] MEDS: fentaNYL citrate PF 100 MCG/2 ML VIAL ONE (12:45)
[2024-10-15] MEDS: CLOPIDOGREL BISULFATE 300 MG TAB ONE (12:45)
[2024-10-15] MEDS: OPTIRAY 350 ONE (12:46)
--- NOTE | 2024-10-15 12:59 | Post Anesthesia Assessment ---
Date of Service October 15, 2024 Post Sedation Assessment Vital Signs Temp Pulse Pulse Resp BP BP Pulse Ox 10/15/24 09:45 78 18 96 10/15/24 08:00 10/15/24 07:34 97.7 F 67 18 147/91 H 92 10/15/24 06:58 64 10/15/24 03:30 98.1 F 64 18 95/51 L 95 10/14/24 23:47 98.1 F 72 20 106/67 93 10/14/24 22:20 72 10/14/24 20:16 97.5 F L 69 20 128/80 95 10/14/24 15:30 97.9 F 88 18 131/86 94 10/14/24 13:00 75 O2 Del Method 10/15/24 09:45 Room Air 10/15/24 08:00 Room Air 10/15/24 07:34 Room Air 10/15/24 06:58 10/15/24 03:30 Room Air 10/14/24 23:47 Room Air 10/14/24 22:20 10/14/24 20:16 Room Air 10/14/24 15:30 Room Air 10/14/24 13:00 Recovery Score Activity: Moves 4 extremities Respiration: Deep Breath/Cough Circulation: +/-20% PreAnes Value Consciousness: Fully Awake Oxygen Saturation: O2 needed for >90% Discharge Sedation Level of Care: Fast Track Phase II Post Sedation Plan On clinical assessment, the patient appears to have tolerated the sedation without complications. Patient is recovering as anticipated. Patient will continue to be monitored by nursing and may be discharged when sedation discharge criteria are met per below protocol. Upon Completions of procedure up to 15 minutes continue every 5 minute vital signs and the P.A.R. score; then discharge to a Phase I or Fast Track to Phase II per the following guidelines: * Discharge Patient to appropriate Phase II area if PAR is 8 or greater or return to pre- procedure baseline. The post - procedure orders will be as directed. * If PAR score is less than 8 or not return to pre-procedure baseline then patient will follow Phase I monitoring till PAR is reached for Phase II. The Phase I may be done in procedure room or may call to secure a Phase I area. * If naloxone or flumazenil are used for reversal, hold in Phase I for continued monitoring from when last reversal dose was given for a minimum of 6 0 minutes or longer pending the nurse and/or physician discretion of patient condition before discharge to Phase II. Please call the Sedation Physician to re-evaluate and complete post-note for discharge to Phase II area. Do NOT discharge from procedure sedation or Phase 1 until post- sedation evaluation note is complete by procedure /sedation MD Sedation Discharge Instructions to be given to the patient at discharge to home.
--- NOTE | 2024-10-15 13:40 | Cardiac Catheterization ---
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 Clinical evaluation leading to the procedure CAD Presenation: Positive Stress Test Diagnostic Physicians Name: Minesh Wang MD Closure Device Recommendations: PCI without planned CABG Cardiac Cath Procedure Full Procedure Date October 15, 2024 Pre-Procedure Diagnosis Pre-Procedure Diagnosis: Positive Stress Test AUC Score AUC Score: 7 Post-Procedure Diagnosis Post-Procedure Diagnosis: Severe CAD, Successful PCI and Normal Intracardiac Pressures Procedure(s) Performed Procedure(s) Performed: Coronary Angiography, Left Heart Cath and Drug Eluting Stent Animal Science Professor Minesh Wang MD Floor Care Specialist(s) Showers Estimated Blood Loss Estimated Blood Loss: 20 Medication(s) Medication(s): Fentanyl, Heparin, Lidocaine 1%, Nicardipine, Nitroglycerin and Versed Summary of Findings Indication: Abnormal stress test Access: 6Fr slender right radial artery Catheters: Norris, EBU 3.5 guide Findings: LM -normal caliber, no significant disease LAD -medium caliber, calcified, 25% proximal disease, 90% mid stenosis after takeoff of small D2. Distal vessel tortuous without significant disease and wraps around apex. Medium D1 without significant disease. Circumflex -medium caliber, proximal to mid luminal irregularities. Very small OM1 50% ostial. Medium OM 2 tortuous without disease. Small left PLB's without disease. RCA -dominant, medium caliber, diffuse mid segment disease up to 50%. Distal vessel, small RPDA and posterior V branch without significant disease. LVEDP - 12 -- PCI -- Antithrombotic therapy: Heparin, Clopidogrel Procedure: LMCA cannulated with EBU3.5 guide Pre-procedure flow HOMER 3 Battery Test Engineer 50 wire passed across lesion into distal vessel Prowater wire placed into 2nd diagonal Mid LAD lesion predilated with 2.5 compliant balloon Dilated lesion stented with 2.5 x 18 mm [place] JUSTUS Stent post-dilated with 3.0 noncompliant balloon IC vasodilators administered for spasm Post procedure HOMER 3 flow, stent well expanded with minimal residual stenosis and no apparent cardiac complications. Arterial Closure: TR Band Summary: 1. Multi-vessel coronary artery disease - 90% mid LAD - Diffuse mid RCA up to 50% 2. Normal intracardiac filling pressure 3. Successful PCI of mid LAD with single JUSTUS (2.5 x 18 mm [place]; post-dilated with 3.0 NC). 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 Any exceptions are noted below. [facility] Card Cath Procedure Codes Cardiac Catheterization Procedure 1: Cardiovascular Cath Procedures: 73922 Coronaries and LHC (+/-LV) Moderate Sedation Procedure 1: Sedation/Anesthesia: 86097 Mod Sedation by the same physician;Init15 Min Child Age 5 & Up Procedure 2: Sedation/Anesthesia: 43702 Mod Sedation by the same physician; Ea [id number] Minutes Stenting Procedure 1: Cardiovascular Stent Procedures: 09047 Perc transcatheter placement of intracoronary stent(s), with ang PG Care Time/CCT Total # of Minutes Spent Total Time Spent with Patient: Total time spent is greater than 50% in coordination of care (as documented) at patient's floor/unit and/or counseling patient:
--- NOTE | 2024-10-15 14:47 | Hospitalist Progress Note ---
Date of Service October 15, 2024 Assessment & Plan (1) Dyspnea on minimal exertion: (2) Chest pain: Plan: 79-year-old female with no significant past medical history presenting w/ CHAMPION, exertional CP w/ LUE radiation. She is being managed for the following: Chest pain, dyspnea on exertion, left upper arm pain ACS ruled out Rule out unstable angina Troponins x 3 negative, admitting EKG w/ TWI in antlat leads. ECHO w/ EF of 55-60%, Gr I diastolic dysfunction. CXR w/ no acute finding. CTA chest w/ no PE or pna. 2mm RUL nodule noted ----> f/u [address] chest recommended. LDL 106. Status post stress test 10/14: Positive for inducible ischemia in the distal LAD or distal right coronary artery territories. Cardiology on board, appreciate recs. Status post heart cath 10/15: PCI of mid LAD with single JUSTUS c/w dapt and statin. loaded w/ Plavix after stent placement per cath note (draft) BP has been better. establish with cardiac rehab upon discharge. 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 Held prednisone taper, No wheezing, currently having cardiac symptoms GERD: Continue PPI DVT prophylaxis: Hep sc Full code Disposition: Lives at home, likely dc juan. Admission and Anticipated Discharge Date Admission Date: October 14, 2024 Subjective Patient was seen and examined at bedside. Patient was sitting up in chair, on room air, NAD, resting comfortably. Patient reports no further chest pain after coming to the hospital. patient denies any shortness of breath. Patient's daughter at bedside who was also updated on plan of care. Physical Exam Physical Exam: General- oriented x 3, not in distress, speaks in sentences with no effort or accessory muscle use Head- atraumatic Eyes- PERRL, EOMI, anicteric ENT- oropharynx clear Neck- supple, no JVD, no adenopathy, no thyromegaly; carotids +2/2, no bruits appreciated Lungs- clear to auscultation bilaterally, no rales/wheezes Heart- normal rate, regular rhythm; no murmur, no gallop, no rub appreciated Abdomen- normal bowel sounds, nondistended, soft, nontender, no masses or hepatosplenomegaly Extremities- no pretibial edema, no calf tenderness; peripheral pulses intact Neuro- alert, oriented x 3; CN 2-12 grossly intact; motor 5/5 bilaterally;sensation 100% on all extremities; no other gross focal neurologic deficits Skin- warm & dry Results & Data Results & Data Vital Signs (Past 12 Hours) Vital Signs Temp Pulse Pulse Resp BP BP Pulse Ox 10/15/24 13:25 36.5 C 73 17 114/70 94 10/15/24 13:13 70 14 122/61 94 10/15/24 12:57 73 14 118/73 94 10/15/24 09:45 78 18 96 10/15/24 08:00 10/15/24 07:34 36.5 C 67 18 147/91 H 92 10/15/24 06:58 64 10/15/24 03:30 36.7 C 64 18 95/51 L 95 O2 Del Method 10/15/24 13:25 Room Air 10/15/24 13:13 Room Air 10/15/24 12:57 Room Air 10/15/24 09:45 Room Air 10/15/24 08:00 Room Air 10/15/24 07:34 Room Air 10/15/24 06:58 10/15/24 03:30 Room Air (2) Chest pain Chest pain type: unspecified Qualified Code(s): R07.9 - Chest pain, unspecified
--- NOTE | 2024-10-15 17:24 | Cardiology Progress Note ---
Date of Service October 15, 2024 Assessment & Plan (1) Exertional angina: (2) Abnormal EKG: Plan: * Cardiac rehab patient with culprit 90% mid LAD fracture patient underwent PCI implantation 2.5 x 18 mm [place] JUSTUS. * Excellent angiographic results * Medical Rx for residual diffuse mid RCA * ASA, clopidogrel, atorvastatin. * add metoprolol succinate * Pt lives in [facility] and is unable to travel to [facility] for cardiac rehab. She is interested in virtual cardiac rehab. Will place outpatient referral. Admission and Anticipated Discharge Date Admission Date: October 14, 2024 Subjective Patient seen postcardiac catheterization. Feeling well. Procedure site stable with radial band having already been removed per protocol. Telemetry reveals stable sinus rhythm in the 70s to 90s. Physical Exam Constitutional: WD/WN, vitals as above Neck: trachea midline, no thyromegaly normal visual inspection Respiratory: normal respiratory effort Auscultation: lungs clear to auscultation bilaterally Cardiovascular: RRR, no murmur, no edema Gastrointestinal (Abdomen): normal bowel sounds, soft, nontender, no hepatosplenomegaly Neurologic: PERRL, EOMI, accommodation nl, no face palsy, no dysarthria Results & Data Vital Signs (Past 12 Hours) Vital Signs Temp Pulse Pulse Resp BP BP Pulse Ox 10/15/24 15:56 36.7 C 94 H 18 107/65 94 10/15/24 13:25 36.5 C 73 17 114/70 94 10/15/24 13:13 70 14 122/61 94 10/15/24 12:57 73 14 118/73 94 10/15/24 09:45 78 18 96 10/15/24 08:00 10/15/24 07:34 36.5 C 67 18 147/91 H 92 10/15/24 06:58 64 O2 Del Method 10/15/24 15:56 Room Air 10/15/24 13:25 Room Air 10/15/24 13:13 Room Air 10/15/24 12:57 Room Air 10/15/24 09:45 Room Air 10/15/24 08:00 Room Air 10/15/24 07:34 Room Air 10/15/24 06:58 Laboratory Results CBC 10/15/24 Range/Units 06:19 WBC 7.23 (4.8-10.8) K/ul RBC 4.25 (4.20-5.40) M/uL Hgb 14.1 (12.0-16.0) g/dl Hct 40.9 (37.0-47.0) % Plt Count 254 (130-400) K/uL Comprehensive Metabolic Panel 10/15/24 Range/Units 06:19 Sodium 139 (136-145) mmol/L Potassium 4.0 (3.5-5.1) mmol/L Chloride 106 (98-107) mmol/L Carbon Dioxide 28 (21-32) mmol/L BUN 21 (6-23) mg/dl Creatinine 0.62 (0.6-1.2) mg/dl Glucose 107 H (70-99(Fasting)) mg/dl Calcium 9.1 (8.6-10.3) mg/dl Intake and Output 10/15/24 10/15/24 10/15/24 06:59 14:59 22:59 Intake Total 120 / 360 500 / 500 Balance 120 / 360 500 / 500 Intake: Oral 120 / 360 500 / 500 Other: Weight 68.9 kg Weight Measurement Method Built in [facility]
[2024-10-15] MEDS: METOPROLOL SUCC 25MG EXT REL TAB PO SCH (17:52)
[2024-10-16 06:47] LABS: Hematocrit (blood only) 40.2 % (37.0-47.0); Hemoglobin 13.9 g/dl (12.0-16.0); Mean Corpuscular Hemoglobin 32.9 pg (25.0-34.0); Mean Corpuscular Hgb Conc 34.6 g/dL (32.0-36.0); Mean Corpuscular Volume 95.3 fL (80.0-100.0); Mean Platelet Volume 11.4 fL (9.4-12.4); Platelet Count 250 K/uL (130-400); RDW Standard Deviation 41.9 fL (36.4-46.3); Red Blood Count 4.22 M/uL (4.20-5.40); White Blood Count 8.13 K/ul (4.8-10.8)
[2024-10-16 07:13] LABS: BUN Creatinine Ratio 31.7 (10-20); Creatinine Clr Calc Pharmacy 71.9 ml/min; Potassium 3.8 mmol/L (3.5-5.1)
[2024-10-16 07:51] VITALS: BP 108/65; PULSE 70; RESP 18; TEMP 97.7; O2SAT 95
--- NOTE | 2024-10-16 10:03 | Cardiology Progress Note ---
Date of Service October 16, 2024 Assessment & Plan (1) Exertional angina: (2) Abnormal EKG: Plan: * patient with culprit 90% mid LAD stenosis for which she underwent PCI implantation 2.5 x 18 mm [place] JUSTUS. * Excellent angiographic results * Medical Rx for residual diffuse mid RCA disease * ASA, clopidogrel, atorvastatin (increase dose to 20 mg daily) * Has tolerated the addition of metoprolol succinate 12.5 mg daily. * BP normal. No CHF, No h/o Diabetes. No indication for ACEI / ARB. * Pt lives in [facility] making travel to [facility] for cardiac rehab challenging, especially in the winter. She is interested in virtual cardiac rehab. * Place request for cardio follow up visit in her outpatient [facility] chart, and placed referral for [facility] vitual cardial rehab. * Stable from cardiology perpective for discharge. Admission and Anticipated Discharge Date Admission Date: October 14, 2024 Subjective Patient seen in cardiology follow-up.She feels well. Denies chest discomfort or shortness of breath. No pain at her procedure site. Telemetry reveals sinus rhythm in the 60s to 70s without arrhythmia. Review of Systems Review of Systems: All systems reviewed & are unremarkable except as noted in HPI & below Physical Exam Constitutional: WD/WN, vitals as above Neck: trachea midline, no thyromegaly normal visual inspection Respiratory: normal respiratory effort Auscultation: lungs clear to auscultation bilaterally Cardiovascular: RRR, no murmur, no edema Gastrointestinal (Abdomen): normal bowel sounds, soft, nontender, no hepatosplenomegaly Neurologic: PERRL, EOMI, accommodation nl, no face palsy, no dysarthria Results & Data Vital Signs (Past 12 Hours) Vital Signs Temp Pulse Pulse Resp BP Pulse Ox O2 Del Method 10/16/24 08:04 Room Air 10/16/24 07:50 36.5 C 70 18 108/65 95 Room Air 10/16/24 07:22 66 10/16/24 03:38 36.6 C 64 16 103/66 94 Room Air 10/16/24 00:09 73 10/15/24 23:35 36.7 C 64 16 98/59 L 93 Room Air Laboratory Results CBC 10/16/24 Range/Units 05:30 WBC 8.13 (4.8-10.8) K/ul RBC 4.22 (4.20-5.40) M/uL Hgb 13.9 (12.0-16.0) g/dl Hct 40.2 (37.0-47.0) % Plt Count 250 (130-400) K/uL Comprehensive Metabolic Panel 10/16/24 Range/Units 05:30 Sodium 138 (136-145) mmol/L Potassium 3.8 (3.5-5.1) mmol/L Chloride 105 (98-107) mmol/L Carbon Dioxide 28 (21-32) mmol/L BUN 19 (6-23) mg/dl Creatinine 0.60 (0.6-1.2) mg/dl Glucose 102 H (70-99(Fasting)) mg/dl Calcium 9.0 (8.6-10.3) mg/dl Intake and Output 10/15/24 10/16/24 10/16/24 22:59 06:59 14:59 Intake Total 524 / 1024 500 / 1024 Balance 524 / 1024 500 / 1024 Intake: Oral 524 / 1024 500 / 1024 Other: # Unmeasured Voids 1 Weight 68.7 kg Weight Measurement Method Built in [facility] Medications Administered EKG performed today 10/16/2024 at 6:05 AM and interpreted independently: Sinus rhythm at 64 bpm, T wave inversions noted in the precordial leads and inferior leads, consistent with evolution of anticipated findings status post LAD stent.
[2024-10-16] MEDS: ATORVASTATIN 10 MG TAB PO SCH (10:26)
[2024-10-16] MEDS: CLOPIDOGREL BISULFATE 75 MG TAB PO SCH (10:26)
--- NOTE | 2024-10-16 14:24 | Discharge Summary ---
Date of Service October 16, 2024 Admission HPI Per Admitting Provider 79-year-old female with no significant past medical history presenting with episodes of chest pressure, shortness of breath, left upper arm pain times few days. As a background, patient is an active 79-year-old lady who exercises at the [employer] at least 5 times a week. Last October 03, 2024, patient presented to her PCP for cough, shortness of breath symptoms. She was given a course of amoxicillin, and azithromycin. As per patient she did not take azithromycin because of possible GI side effect. Patient's cough is improving but still is reporting shortness of breath with exertion. Last , she had a follow-up visit with her PCP. An EKG was performed which showed some abnormalities. She was given a course of prednisone. Since that time, the patient is still experiencing some shortness of breath with exertion, associated with chest pressure and intermittent left upper arm pain. Due to the symptoms, patient presented to the ER today. At the ER, blood pressure 163/86, heart rate 68, O2 sat 96% on room air. EKG: Nonspecific T wave depressions inferior and anterolateral leads Troponins x 2: Negative On exam, patient seen resting in bed, sitting up, not in distress No active shortness of breath or chest pain but does have left upper arm discomfort-burning/sharp. No headache, dizziness, abdominal pain, nausea or vomiting, lower extremity pain, etc. Admission Exam Per Admitting Provider General- oriented x 3, not in distress, speaks in sentences with no effort or accessory muscle use Head- atraumatic Eyes- PERRL, EOMI, anicteric ENT- oropharynx clear Neck- supple, no JVD, no adenopathy, no thyromegaly; carotids +2/2, no bruits appreciated Lungs- clear to auscultation bilaterally, no rales/wheezes Heart- normal rate, regular rhythm; no murmur, no gallop, no rub appreciated Abdomen- normal bowel sounds, nondistended, soft, nontender, no masses or hepatosplenomegaly Extremities- no pretibial edema, no calf tenderness; peripheral pulses intact Neuro- alert, oriented x 3; CN 2-12 grossly intact; motor 5/5 bilaterally;sensation 100% on all extremities; no other gross focal neurologic deficits Skin- warm & dry Principal Diagnosis Exertional angina status post LAD stent placement. Discharge Exam General- oriented x 3, not in distress, speaks in sentences with no effort or accessory muscle use Lungs- clear to auscultation bilaterally, no rales/wheezes Heart- normal rate, regular rhythm; no murmur, no gallop, no rub appreciated Abdomen- normal bowel sounds, nondistended, soft, nontender, no masses or hepatosplenomegaly Extremities- no pretibial edema, no calf tenderness; peripheral pulses intact Neuro- alert, oriented x 3; CN 2-12 grossly intact; motor 5/5 bilaterally;sensation 100% on all extremities; no other gross focal neurologic deficits Skin- warm & dry Discharge Data Allergies Allergy/AdvReac Type Severity Reaction Status Date / Time No Known Allergies Allergy Unverified 10/12/24 13:50 Consultations 10/12/24 13:49 ED Decision to Admit Stat 10/12/24 17:52 Consult Cardiology Routine Procedures Performed Operation Date: 10/15/24 11:00 Actual Procedures s Cineradiography w/Routine Exam - Minesh Wang MD p Cath, Left with Cors and Vent - Minesh Wang MD p Drug Eluting Stent SGl Vessel - Minesh Wang MD Ordered Studies 10/13/24 13:50 CT angio chest PE protocol Urgent 10/15/24 06:38 CL Cath Imgs for PACS use only Routine Hospital Course (1) Dyspnea on minimal exertion: (2) Chest pain: 79-year-old female with no significant past medical history presenting w/ CHAMPION, exertional CP w/ LUE radiation. On admission; patient was found to have normal sinus rhythm with T wave inversion in anterolateral leads. Echocardiogram showed EF of 55 to 60% with grade 1 diastolic dysfunction. Patient underwent stress test on 10/14 which was positive for inducible ischemia and distal LAD or distal right coronary artery territory. Patient underwent left heart cath on 10/15; had PCI of mid LAD with single drug-eluting stent. Patient was then monitored overnight. Started on DAPT, statin along with metoprolol. Patient did not have any arrhythmia on telemetry during the hospitalization. Patient was discharged home with instructions to follow-up with PCP and cardiology. Please note the above document was generated using voice recognition software. It may contain grammatical, syntax or spelling errors. Any formal questions or concerns about the content, text or information contained within the body of this dictation should be directly addressed to the provider for clarification Total Time Total Time Spent Total Time Spent (In Minutes): 35 Total Time Includes: Examination of the Patient, Discharge Planning, Medication Reconciliation, Communication With Other Providers and Other Discharge Plan Discharge Items Patient Disposition: Home - Self-Care Reason For Visit: CHEST PAIN, DYSPNEA ON EXERTION Discharge Diagnosis: CAD status post stent placement Activity: Resume your previous activity Non-emergency contact: Primary Care Provider Call non-emergency contact if: you have any medication questions and your symptoms worsen Follow-up/Referrals: Prashant Munoz M.D. [Outside Practitioners] - (Date & Time 10/18/2024 9:00 AM Provider: Prashant Munoz MD Department: Family Practice [facility] ) Diet: Regular Addtl Attending Provider Instructions: You were admitted to the hospital with angina. You underwent cardiac catheterization with a stent placement in one of your heart vessels. You are prescribed following medication Take aspirin 81 mg once a day Take Plavix 75 mg once a day Take Lipitor 20 mg once a day Take metoprolol 12.5 mg once a day. Please stop taking esomeprazole it interacts with Plavix. You are prescribed Protonix instead of it. Follow-up with primary care and cardiology. Pending Studies at Discharge: No Stand-Alone Forms: My [facility], Smoking Cessation Medications and DC Order Prescriptions: New clopidogrel 75 mg Tablet 75 mg PO QAM 90 Days Qty: 90 0RF aspirin 81 mg Tablet,Delayed Release (Dr/Ec) 81 mg PO QAM 90 Days Qty: 90 0RF metoprolol succinate 25 mg Tablet Extended Release 24 Hr 12.5 mg PO QAM 90 Days Qty: 45 0RF atorvastatin [Lipitor] 20 mg tablet 20 mg PO DAILY Qty: 90 0RF pantoprazole 40 mg Tablet,Delayed Release (Dr/Ec) 40 mg PO QAM 90 Days Qty: 90 0RF Continued promethazine-DM 6.25-15 mg/5 mL syrup 5 ml PO QID PRN (Reason: Cough) Pepcid Complete 10-800-165 mg Tablet,Chewable 1 tab PO HS Discontinued prednisone 10 mg tablet See Rx Instructions .ROUTE .COMPLEX Rx Instructions: Start Date 10/10/24 x8 day supply. Take 10mg PO BID x 4 days; then 10mg PO DAILY x4 days No Action amoxicillin 500 mg capsule 500 mg PO TID Rx Instructions: Start Date 10/03/24 x10 day supply esomeprazole magnesium 40 mg capsule,delayed release(DR/EC) 40 mg PO QAM Discharge Orders: Discharge Order (Routine); Ordered 10/16/24 Ordered By: Geovanni Muse/Other Patient Handouts: Coronary Stents, Having Cardiac Catheterization, Heart Attack Angina Sx Admission Data Admit Date/Time: 10/14/24 16:25 Attending Provider: Geovanni Dorsey Admit Provider: Bakari Grimes Primary Care Provider: Abraham Todd Other Providers: Bakari Grimes; Hoda Crockett; Estrada Traore; Demetrio Prado; Elmer Ngo; Pete Jordan; Chas Valencia; Shi Call; Mariaa Smith; Madalyn Sepulveda; Hoda Mckenna; Edmund Lamar; Shaheen Anderson; Lavinia Rosenthal; Pauline Rojas; Julia Chaparro; Zakiya Leo; Enrike Potter; Monique Gallardo; Rani Don Other Interventions: Discharge Summary Assessment (RN) Last Done: 10/16/24 10:41
--- NOTE | 2024-10-18 21:48 | Electrocardiogram Report ---
Test Reason : Blood Pressure : */* mmHG Vent. Rate : 64 BPM Atrial Rate : 64 BPM P-R Int : 180 ms QRS Dur : 80 ms QT Int : 428 ms P-R-T Axes : 70 -5 -8 degrees QTcB Int : 441 ms Normal sinus rhythm T wave abnormality, consider inferior ischemia T wave abnormality, consider anterior ischemia Abnormal ECG When compared with ECG of 13-Oct-2024 06:10, T wave inversion now evident in Inferior leads Confirmed by Camilo Bourne ([id number]) on 10/18/2024 9:47:43 PM Referred By: Abraham Todd Confirmed By: Camilo Bourne
== END 2024-10-16 11:33 | disposition home or self-care (01) | DRG 322 ==
LOC: 2N 10:43 → ED 10:43 → SUATTDRO 13:56 → 2N 15:20 → SUATTDRO 10-14 16:25 → 2S 10-15 11:27